=== PATIENT | male | born 1995 | race Caucasian/White ===

== ENCOUNTER 2018-05-15 04:02 | Emergency (ER) | payer BC ==
[~2018-05-15] VITALS: Ht 188 cm; Wt 113.4 kg
[~2018-05-15 04:02] MED LIST: ESCI10TA PO; LISDEXAMFETAMINE PO
[2018-05-15 04:08] VITALS: BP_SYST 136
[2018-05-15] MEDS ORDERED: KETOROLAC TROMETHAMINE 30 MG VIAL IVP ONE (04:30)
[2018-05-15] MEDS ORDERED: NACL 0.9% 1,000 ML IV ONE (04:30)
[2018-05-15] MEDS ORDERED: ONDANSETRON HCL 4 MG/2 ML VIAL IVP ONE (04:30)
[2018-05-15 04:57] LABS: BASOPHILS % (AUTO) 0.2 % (0.0-2.0); EOSINOPHILS # (AUTO) 0.1 K/uL (0.0-0.4); EOSINOPHILS % (AUTO) 0.8 % (0.0-4.0); HEMATOCRIT 44.3 % (36-54); HEMOGLOBIN 14.9 g/dL (14.0-18.0); LYMPHOCYTES # (AUTO) 0.5 K/uL (1.0-5.5); LYMPHOCYTES % (AUTO) 5.3 % (20.5-51.5); MEAN CORPUSCULAR HEMOGLOBIN 30 pg (27-31); MEAN CORPUSCULAR HGB CONC 34 % (32-36); MEAN CORPUSCULAR VOLUME 88 fL (79.0-98.0); MONOCYTES # (AUTO) 0.4 K/uL (0.0-1.0); NEUTROPHILS # (AUTO) 8.8 K/uL (1.8-7.7); NEUTROPHILS % (AUTO) 89.7 % (40.0-70.0); PLATELET COUNT (AUTO) 296 K/uL (130-430); RED BLOOD CELL COUNT(AUTO) 5.03 MIL/uL (4.2-6.2); RED CELL DISTRIBUTION WIDTH 12.5 % (9.0-15.0); WHITE BLOOD COUNT (AUTO) 9.8 K/uL (4.8-10.8)
[2018-05-15 05:06] LABS: CREATININE 0.79 mg/dL (0.55-1.30); POTASSIUM 3.5 mmol/L (3.5-5.1)
[2018-05-15 05:10] LABS: ALBUMIN 4.3 g/dL (3.4-4.8); TOTAL BILIRUBIN 0.6 mg/dL (0.0-1.0)
[2018-05-15 05:50] VITALS: BP_SYST 132
== END 2018-05-15 05:50 | disposition home or self-care (01) ==
LOC: SED 04:02
DX: T62.91XA Toxic effect of unspecified noxious substance eaten as food, accidental (unintentional), initial encounter (principal); R10.32 Left lower quadrant pain; R11.10 Vomiting, unspecified; R50.9 Fever, unspecified; J45.909 Unspecified asthma, uncomplicated; Z88.1 Allergy status to other antibiotic agents; Y92.89 Other specified places as the place of occurrence of the external cause
CPT/HCPCS: 36415; 74018; 80053; 83690; 85025; 96361; 96374; 96375; 99285; J1885; J2405; J7030

== ENCOUNTER 2019-09-08 00:23 | Emergency (ER) | payer BC ==
[~2019-09-08] VITALS: Ht 188 cm; Wt 114.3 kg
[2019-09-08 00:30] VITALS: BP_SYST 142
--- NOTE | 2019-09-08 00:30 | NUR ---
Pt ambulatory to bed 2 for evaluation
--- NOTE | 2019-09-08 00:31 | NUR ---
ER at bedside examining patient.
[2019-09-08] MEDS ORDERED: LIDOCAINE 1% 10 MG/ML, 20 ML MDV SUBCUT ONE (00:45)
[2019-09-08] MEDS ORDERED: BACITRACIN 1 GM OINT TP ONE (00:45)
--- NOTE | 2019-09-08 00:55 | NUR ---
Pt BIB family to ED C/O gradual onset, mild, pain to his left flank secondary to a bump for 1 day. States that there is a bump to his left flank the size of a "small potato." No other complaints and or injuries noted VSS no s/s of acute distress Resting on gurney rails up
[2019-09-08] MEDS ORDERED: KETOROLAC TROMETHAMINE 60 MG/2 ML VIAL IM ONE (01:15)
[2019-09-08 01:58] VITALS: BP_SYST 142
--- NOTE | 2019-09-08 01:58 | NUR ---
Patient given written and verbal discharge instructions and verbalizes understanding. ER MD discussed with patient the results and treatment provided. Patient in stable condition. ID arm band removed. Rx of Tylenol and Keflex given. Patient educated on pain management and to follow up with PMD. Pain Scale 0/10. Opportunity for questions provided and answered. Medication side effect fact sheet provided.
== END 2019-09-08 01:58 | disposition home or self-care (01) ==
LOC: SED 00:23
DX: L02.211 Cutaneous abscess of abdominal wall (principal); J45.909 Unspecified asthma, uncomplicated; Z88.1 Allergy status to other antibiotic agents
CPT/HCPCS: 10060; 96372; 99283; J1885; J2001

== ENCOUNTER 2019-09-10 12:32 | Emergency (ER) | payer BC ==
[~2019-09-10] VITALS: Ht 188 cm; Wt 113.4 kg
[2019-09-10 12:47] VITALS: BP_SYST 123
--- NOTE | 2019-09-10 12:54 | NUR ---
Patient to ER bed 8 to gown for evaluation. Side rails up. Report given to JERALD Baum.
--- NOTE | 2019-09-10 12:55 | NUR ---
ER at bedside examining patient.
--- NOTE | 2019-09-10 12:56 | NUR ---
PT PRESENTS TO ED FOR WOUND CHECK OF WOUND PACK ON L SIDE
--- NOTE | 2019-09-10 12:58 | NUR ---
WOUND ROSITA COLLECTED AND SENT
[2019-09-10 13:01] VITALS: BP_SYST 123
--- NOTE | 2019-09-10 13:01 | NUR ---
Patient given written and verbal discharge instructions and verbalizes understanding. ER MD discussed with patient the results and treatment provided. Patient in stable condition. ID arm band removed. Rx of BACTRIM DS given. Patient educated on pain management and to follow up with PMD. Pain Scale 2 Opportunity for questions provided and answered. Medication side effect fact sheet provided.
--- NOTE | 2019-09-13 18:25 | NUR ---
Attempted to contact patient, voicemail left. Addendum: 09/13/19 at 1826 by [place] Called .
== END 2019-09-10 13:01 | disposition home or self-care (01) ==
LOC: SED 12:32
DX: B95.62 Methicillin resistant Staphylococcus aureus infection as the cause of diseases classified elsewhere (principal); J45.909 Unspecified asthma, uncomplicated; Z88.1 Allergy status to other antibiotic agents
CPT/HCPCS: 87070-TC; 87186-TC; 99283

== ENCOUNTER 2019-09-11 17:53 | Emergency (ER) | payer BC ==
[~2019-09-11] VITALS: Ht 188 cm; Wt 113.4 kg
[2019-09-11 18:09] VITALS: BP_SYST 132
--- NOTE | 2019-09-11 18:42 | NUR ---
Patient to ER bed 02 to gown for evaluation. Side rails up.
--- NOTE | 2019-09-11 18:43 | NUR ---
RN ASSESSING PT . PT NEED WOUND CHECK FOR ABSCESS.
--- NOTE | 2019-09-11 18:55 | NUR ---
MD DE LA CRUZ ASSESSING PT AND CLEANED WOUND. PT REFUSED TO HAVE MD RE-PACK WOUND. PT JUST WANTS IT CLEANED . RN THEN RE-DRESSED THE AREA. PT WAS THEN FREE TO GO. AND TO CONTINUE ON THE ALREADY PRESCRIBED ANTIBIOTIC THERAPY.
--- NOTE | 2019-09-11 18:56 | NUR ---
Patient given written and verbal discharge instructions and verbalizes understanding. ER MD discussed with patient the results and treatment provided. Patient in stable condition. ID arm band removed. Rx of KEFLEX THAT WAS ALREADY given A FEW DAYS AGO. Patient educated on pain management and to follow up with PMD. Pain Scale 1/10. Opportunity for questions provided and answered. Medication side effect fact sheet provided.
[2019-09-11 18:59] VITALS: BP_SYST 119
== END 2019-09-11 18:59 | disposition home or self-care (01) ==
LOC: SED 17:53
DX: Z48.00 Encounter for change or removal of nonsurgical wound dressing (principal); J45.909 Unspecified asthma, uncomplicated; Z88.1 Allergy status to other antibiotic agents
CPT/HCPCS: 99281

== ENCOUNTER 2019-09-17 11:12 | Emergency (ER) | payer BC ==
[~2019-09-17] VITALS: Ht 188 cm; Wt 113.4 kg
[2019-09-17 11:25] VITALS: BP_SYST 126
[2019-09-17 11:45] VITALS: BP_SYST 126
== END 2019-09-17 11:46 | disposition home or self-care (01) ==
LOC: SED 11:12
DX: Z48.00 Encounter for change or removal of nonsurgical wound dressing (principal); J45.909 Unspecified asthma, uncomplicated; Z88.1 Allergy status to other antibiotic agents; Z86.14 Personal history of Methicillin resistant Staphylococcus aureus infection
CPT/HCPCS: 99281